=== PATIENT | female | born 1995 | race Caucasian/White ===

== ENCOUNTER 2021-11-08 13:15 | Outpatient (CLI) | payer OTHER, SELFPAY ==
[2021-11-08 22:07] LABS: TSH With Reflex to FT4* 0.995 uIU/mL (0.270-4.200)
== END 2021-11-08 13:16 | disposition home or self-care (01) ==
PROVIDERS: PCP Family Medicine; Visit Provider Family Medicine
DX: Z00.00 Encounter for general adult medical examination without abnormal findings (principal); R53.83 Other fatigue; Z12.4 Encounter for screening for malignant neoplasm of cervix
CPT/HCPCS: 84443; 87624; 88175